=== PATIENT | male | born 1960 | race Caucasian/White ===

== ENCOUNTER 2017-12-18 10:58 | Emergency (ER) | payer OTHER ==
[~2017-12-18] VITALS: Ht 177.8 cm; Wt 104.3 kg
[2017-12-18 11:05] VITALS: BP 156/108
== END 2017-12-18 12:11 | disposition home or self-care (01) ==
LOC: ER 11:10
DX: S86.912A Strain of unspecified muscle(s) and tendon(s) at lower leg level, left leg, initial encounter (principal); I10 Essential (primary) hypertension; X58.XXXA Exposure to other specified factors, initial encounter; Y93.89 Activity, other specified; Y99.8 Other external cause status; Y92.89 Other specified places as the place of occurrence of the external cause
CPT/HCPCS: 93971